=== PATIENT | male | born 1975 | race Caucasian/White ===

== ENCOUNTER 2016-12-31 03:19 | Emergency (ER) | payer OTHER ==
[2016-12-31 03:28] VITALS: RESP 16
[2016-12-31] MEDS ORDERED: NS 1,000 ML IV ONE (03:35)
[2016-12-31] MEDS ORDERED: DEXAMETHASONE 4 MG/ML VIAL IVP ONE (03:45)
[2016-12-31] MEDS ORDERED: METOCLOPRAMIDE 10 MG/2 ML VIAL IVP ONE (03:45)
[2016-12-31] MEDS ORDERED: KETOROLAC 15 MG/1 ML SDV IVP ONE (03:45)
--- NOTE | 2016-12-31 03:45 | EDPHY ---
H & P Stated Complaint: [place] HPI/ROS: HPI CHIEF COMPLAINT: "I am having a migraine headache" HISTORY OF PRESENT ILLNESS: This patient very pleasant 41-year-old male significant past medical history for migraine headaches last migraine headache was 1 month ago, takes sumatriptan, also has anxiety, he presents emergency room with a frontal throbbing pounding headache consistent with his previous migraines. He states he woke him up around 130 in the morning. He did try 2 separate doses of sumatriptan and ibuprofen however this did not help relieve his headache. He has had 3 episodes of nausea vomiting associated this headache. He has no neck pain, chest pain or shortness of breath he has no numbness or tingling or focal weakness. States similar to his previous migraine headaches. 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 Exam Constitutional appears well nontoxic, triage nursing summary reviewed, vital signs reviewed, awake/alert. Eyes normal conjunctivae and sclera, EOMI, PERRLA. HENT normal inspection, atraumatic, moist mucus membranes, no epistaxis, neck supple/ no meningismus, no raccoon eyes. Respiratory clear to auscultation bilaterally, normal breath sounds, no respiratory distress, no wheezing. Cardiovascular rate normal, regular rhythm, no murmur, no edema, distal pulses normal. Gastrointestinal soft, non-tender, no rebound, no guarding, normal bowel sounds, no distension, no pulsatile mass. Genitourinary no CVA tenderness. Musculoskeletal no midline vertebral tenderness, full range of motion, no calf swelling, no tenderness of extremities, no meningismus, good pulses, neurovascularly intact. Skin pink, warm, & dry, no rash, skin atraumatic. Neurologic normal neurological exam awake, alert and oriented x 3, AAOx3, moves all 4 extremities equally, motor intact, sensory intact, CN II-XII intact , normal cerebellar, normal vision, normal speech. Psychiatric normal mood/affect. Heme/Lymph/Immune no lymphadenopathy. Differential Diagnosis: Includes but is not limited to in no particular order, migraine headache, tension headache, cluster headache, doubt intracranial bleed. Medical Decision Making: Patient be placed on full director of cardiac cath lab he will have an IV established will obtain blood work, a be gently hydrated with IV fluids, he will be given abortive medications for his migraine headache. This includes Decadron, Toradol, Benadryl Reglan. Re-evaluation: CT scan of the head without IV contrast The results of the study are negative for acute abnormality specifically no bleed or tumor. The study was read by Dr. York I viewed the images myself on the PACS system. 515AM: Re-examination at this time this patient is feeling much better his headache is completely resolved with migraine cocktail. His neurological exam is unremarkable and nonfocal. His CT scan and blood work have been reviewed and are unremarkable. Vital signs stable. He is agreeable for discharge she is asking for nausea medicine to go home on as well as a refill his sumatriptan. This is reasonable. He does understand return emergency room if develops worsening symptoms includes severe headache, nausea, vomiting. Source: Patient - Personal History Current Tetanus/Diphtheria Vaccine: Yes Current Tetanus Diphtheria and Acellular Pertussis (TDAP): Yes - Medical/Surgical History Hx Asthma: No Hx Chronic Respiratory Disease: No Hx Diabetes: No Hx Cardiac Disease: No Hx Renal Disease: No Hx Cirrhosis: No Hx Alcoholism: No Hx HIV/AIDS: No Hx Splenectomy or Spleen Trauma: No Other PMH: anxiety, migraines, hemmoroid, appy - Social History Smoking Status: Never smoked Constitutional: Initial Vital Signs Heart Rate 72 12/31/16 03:25 Respiratory Rate 16 12/31/16 03:25 Blood Pressure 137/64 H 12/31/16 03:25 O2 Sat (%) 98 12/31/16 03:25 O2 Delivery Mode Room Air Allergies/Adverse Reactions: No Known Allergies Allergy (Unverified 12/31/16 03:24) Home Medications: Medication Instructions Recorded Sumatriptan Succinate [Imitrex] 0.5 tab PO AD PRN #9 tablet 04/23/15 Ondansetron HCl [Zofran] 4 mg PO Q4-6PRN PRN #10 tablet 12/31/16 SUMAtriptan [Imitrex 50 MG (*)] 50 mg PO Q2H #5 tab 12/31/16 Zoloft 25mg (*) 12/31/16 Medical Decision Making - Data Points Laboratory Results: Laboratory Results 12/31/16 03:35 12/31/16 03:35 12/31/16 12/31/16 12/31/16 03:35 03:35 03:35 WBC 6.95 10^3/uL 10^3/uL (3.80-9.50) RBC 5.08 10^6/uL 10^6/uL (4.40-6.38) Hgb 15.2 g/dL g/dL (13.7-17.5) Hct 43.2 % % (40.0-51.0) MCV 85.0 fL fL (81.5-99.8) MCH 29.9 pg pg (27.9-34.1) MCHC 35.2 g/dL g/dL (32.4-36.7) RDW 12.4 % % (11.5-15.2) Plt Count 157 10^3/uL 10^3/uL (150-400) MPV 12.6 fL H fL (8.7-11.7) Neut % (Auto) 53.3 % % (39.3-74.2) Lymph % (Auto) 37.3 % % (15.0-45.0) [place] % (Auto) 6.3 % % (4.5-13.0) Eos % (Auto) 2.6 % % (0.6-7.6) Baso % (Auto) 0.4 % % (0.3-1.7) Nucleat RBC Rel Count 0.0 % % (0.0-0.2) Absolute Neuts (auto) 3.70 10^3/uL 10^3/uL (1.70-6.50) Absolute Lymphs (auto) 2.59 10^3/uL 10^3/uL (1.00-3.00) Absolute Monos (auto) 0.44 10^3/uL 10^3/uL (0.30-0.80) Absolute Eos (auto) 0.18 10^3/uL 10^3/uL (0.03-0.40) Absolute Basos (auto) 0.03 10^3/uL 10^3/uL (0.02-0.10) Absolute Nucleated RBC 0.00 10^3/uL 10^3/uL (0-0.01) Immature Gran % 0.1 % % (0.0-1.1) Immature Gran # 0.01 10^3/uL 10^3/uL (0.00-0.10) PT 13.2 SEC SEC (12.0-15.0) INR 1.01 (0.83-1.16) APTT 23.5 SEC SEC (23.0-38.0) Sodium 143 mEq/L mEq/L (134-144) Potassium 4.0 mEq/L mEq/L (3.5-5.2) Chloride 107 mEq/L mEq/L (97-110) Carbon Dioxide 22 mEq/l mEq/l (22-31) Anion Gap 14 mEq/L mEq/L (8-16) BUN 23 mg/dL mg/dL (7-23) Creatinine 0.9 mg/dL mg/dL (0.7-1.3) Estimated GFR > 60 Glucose 113 mg/dL H mg/dL (70-100) Calcium 9.9 mg/dL mg/dL (8.5-10.4) Total Bilirubin Cancelled Conjugated Bilirubin Cancelled Unconjugated Bilirubin Cancelled AST Cancelled ALT Cancelled Alkaline Phosphatase Cancelled Total Protein Cancelled Albumin Cancelled Lipase Cancelled Medications Given: Discontinued Medications Dexamethasone (Decadron Injection) 4 mg IVP EDNOW ONE Stop: 12/31/16 03:46 Last Admin: 12/31/16 03:56 Dose: Not Given Dexamethasone (Decadron Injection) 10 mg IVP EDNOW ONE Stop: 12/31/16 03:52 Last Admin: 12/31/16 03:56 Dose: 10 mg Diphenhydramine HCl (Benadryl Injection) 50 mg IVP EDNOW ONE Stop: 12/31/16 03:46 Last Admin: 12/31/16 03:55 Dose: 50 mg Sodium Chloride (Ns) 1,000 mls @ 0 mls/hr IV ONCE ONE PRN Reason: Wide Open Stop: 12/31/16 03:36 Last Admin: 12/31/16 03:46 Dose: 1,000 mls Ketorolac Tromethamine (Toradol) 15 mg IVP EDNOW ONE Stop: 12/31/16 03:46 Last Admin: 12/31/16 03:56 Dose: 15 mg Metoclopramide HCl (Reglan Injection) 10 mg IVP EDNOW ONE Stop: 12/31/16 03:46 Last Admin: 12/31/16 03:56 Dose: 10 mg Departure - Departure Disposition: Home, Routine, Self-Care Clinical Impression: Headache Qualifiers: Headache type: unspecified Headache chronicity pattern: acute headache Intractability: not intractable Qualified Code(s): R51 - Headache Condition: Good Instructions: Acute Headache (ED) Additional Instructions: 1.Return to the Emergency Room immediately if you developsworsening symptoms questions or concerns. This includes severe headache, vomiting or high fever. Referrals: Barbara Mullins, PRESS LOADER [Primary Care Provider] - As per Instructions Prescriptions: Ondansetron HCl [Zofran] 4 mg PO Q4-6PRN PRN #10 tablet PRN Reason: Nausea/Vomiting, Use 1st SUMAtriptan [Imitrex 50 MG (*)] 50 mg PO Q2H #5 tab
[2016-12-31 03:49] LABS: % IMMATURE GRANULYOCYTES 0.1 % (0.0-1.1); ABSOLUTE IMMATURE GRANULOCYTES 0.01 10^3/uL (0.00-0.10); ADD DIFF? NO; ADD MORPH? NO; ADD SCAN? NO; ATYPICAL LYMPHOCYTE FLAG 0 (0-99); FRAGMENT RBC FLAG 0 (0-99); HEMATOCRIT 43.2 % (40.0-51.0); HEMOGLOBIN 15.2 g/dL (13.7-17.5); LEFT SHIFT FLG 0 (0-99); LIPEMIA HEMOLYSIS FLAG 90 (0-99); MEAN CELL HEMOGLOBIN 29.9 pg (27.9-34.1); MEAN CELL HEMOGLOBIN CONCENTR. 35.2 g/dL (32.4-36.7); MEAN PLATELET VOLUME 12.6 fL (8.7-11.7); PLATELET CLUMPS FLAG 0 (0-99); PLATELET COUNT 157 10^3/uL (150-400); RED BLOOD CELL COUNT 5.08 10^6/uL (4.40-6.38); RED CELL DISTRIBUTION WIDTH 12.4 % (11.5-15.2)
[2016-12-31] MEDS ORDERED: DEXAMETHASONE 10 MG/ML VIAL IVP ONE (03:51)
[2016-12-31 03:59] LABS: INR 1.01 (0.83-1.16); PROTIME(PATIENT) 13.2 SEC (12.0-15.0)
[2016-12-31 04:00] LABS: ANION GAP 14 mEq/L (8-16); APTT 23.5 SEC (23.0-38.0); CALCIUM 9.9 mg/dL (8.5-10.4); CARBON DIOXIDE 22 mEq/l (22-31); CHLORIDE 107 mEq/L (97-110); CREATININE 0.9 mg/dL (0.7-1.3); GLOMERULAR FILTRATION RATE > 60; GLUCOSE 113 mg/dL (70-100); SODIUM 143 mEq/L (134-144)
[2016-12-31 05:31] VITALS: BP 117/68; PULSE 76; TEMP 97.9; O2SAT 96
== END 2016-12-31 05:31 | disposition home or self-care (01) ==
DX: R51 Headache (principal); I10 Essential (primary) hypertension
CPT/HCPCS: 96374; J1100; J1200; J1885; J2765

== ENCOUNTER 2018-06-24 01:32 | Emergency (ER) | payer OTHER ==
[2018-06-24] MEDS ORDERED: HALOPERIDOL LACT 5 MG/ML INJ IVP ONE (01:57)
[2018-06-24] MEDS ORDERED: NS 1,000 ML IV ONE (01:57)
[2018-06-24] MEDS ORDERED: DEXAMETHASONE 10 MG/ML VIAL IVP ONE (01:57)
[2018-06-24] MEDS ORDERED: KETOROLAC 15 MG/1 ML SDV IVP ONE (01:57)
--- NOTE | 2018-06-24 02:00 | EDPHY ---
H & P Stated Complaint: MIGRAINE HEADACHE 1 DAY, N,V, PHOTOPHOBIA Time Seen by Provider: 06/24/18 01:52 HPI/ROS: Chief Complaint: Migraine headache HPI: 43-year-old male with a history migraine headaches began having a his usual migraine about 10:00 a.m. Tonight. It was gradual in onset. Pain is about a 10/10. He has had pain this bad before. He did take sumatriptan without affect. He states that his typical triggers are chili peppers chocolate and dehydration. He does feel dehydrated is not drink as much fluid in the last 2 days as he or normally does. No new numbness or weakness. He describes pain in his whole front of his head primarily in the left hand side. Some nausea vomiting. Some photophobia. No neck pain or stiffness. Is described as pounding. ROS: 10 systems were reviewed and were negative except those elements noted in the HPI. PMH: Migraine headache Social History: No smoking, no alcohol, no recreational drug use Family History: non-contributory Physical Exam: Gen: Awake, Alert, No Distress HEENT: Nose: no rhinorrhea Eyes: PERRLA, EOMI Mouth: Moist mucosa Neck: Supple, no JVD Chest: nontender, lungs clear to auscultation Heart: S1, S2 normal, no murmur Abd: Soft, non-tender, no guarding Back: no CVA tenderness, no midline tenderness Ext: no edema, non-tender Skin: no rash Neuro: CN II-XII intact, Sensation grossly intact, Strength 5/5 in bilateral upper and lower extremities - Personal History Current Tetanus/Diphtheria Vaccine: Unsure Current Tetanus Diphtheria and Acellular Pertussis (TDAP): Unsure - Medical/Surgical History Hx Asthma: No Hx Chronic Respiratory Disease: No Hx Diabetes: No Hx Cardiac Disease: No Hx Renal Disease: No Hx Cirrhosis: No Hx Alcoholism: No Hx HIV/AIDS: No Hx Splenectomy or Spleen Trauma: No Other PMH: anxiety, migraines, hemmoroid, appy - Social History Smoking Status: Never smoked Constitutional: Initial Vital Signs Temperature (C) 36.4 C 06/24/18 01:35 Heart Rate 72 06/24/18 01:35 Respiratory Rate 18 06/24/18 01:35 Blood Pressure 133/85 H 06/24/18 01:35 O2 Sat (%) 98 06/24/18 01:35 O2 Delivery Mode Room Air Allergies/Adverse Reactions: No Known Allergies Allergy (Unverified 06/24/18 01:38) Home Medications: Medication Instructions Recorded Sumatriptan Succinate [Imitrex] 0.5 tab PO AD PRN #9 tablet 04/23/15 Ondansetron HCl [Zofran] 4 mg PO Q4-6PRN PRN #10 tablet 12/31/16 SUMAtriptan [Imitrex 50 MG (*)] 50 mg PO Q2H #5 tab 12/31/16 buPROPion [Wellbutrin 100mg (*)] 100 mg PO TID 06/24/18 Medical Decision Making ED Course/Re-evaluation: Patient is improved after migraine cocktail. Headache is nearly gone. He is ambulating unassisted. Will discharge with follow-up with primary care physician, return for any concerns. I do not see any evidence of acute infectious or hemorrhagic process. - Data Points Medications Given: Discontinued Medications Dexamethasone (Decadron Injection) 10 mg IVP EDNOW ONE Stop: 06/24/18 01:58 Last Admin: 06/24/18 02:06 Dose: 10 mg Diphenhydramine HCl (Benadryl Injection) 50 mg IVP EDNOW ONE Stop: 06/24/18 01:58 Last Admin: 06/24/18 02:04 Dose: 50 mg Haloperidol Lactate (Haldol Injection) 2.5 mg IVP EDNOW ONE Stop: 06/24/18 01:58 Last Admin: 06/24/18 02:09 Dose: 2.5 mg Sodium Chloride (Ns) 1,000 mls @ 0 mls/hr IV ONCE ONE; Wide Open PRN Reason: Protocol Stop: 06/24/18 01:58 Last Admin: 06/24/18 02:04 Dose: 1,000 mls Ketorolac Tromethamine (Toradol) 15 mg IVP EDNOW ONE Stop: 06/24/18 01:58 Last Admin: 06/24/18 02:07 Dose: 15 mg Departure - Departure Disposition: Home, Routine, Self-Care Clinical Impression: Migraine headache Condition: Good Instructions: Migraine Headache (ED), Dehydration (ED) Additional Instructions: Follow up with primary care physician in 2-3 days for further evaluation. Return to the emergency department for worsening headache, uncontrolled nausea vomiting, fevers, or any other concerns. Referrals: Barbara Mullins, REAL ESTATE MANAGER [Primary Care Provider] - As per Instructions
[2018-06-24 03:18] VITALS: BP 113/77
== END 2018-06-24 03:28 | disposition home or self-care (01) ==
DX: G43.909 Migraine, unspecified, not intractable, without status migrainosus (principal); E86.9 Volume depletion, unspecified
CPT/HCPCS: 96374; J1100; J1200; J1630; J1885

== ENCOUNTER 2018-07-29 01:33 | Emergency (ER) | payer OTHER ==
[2018-07-29] MEDS ORDERED: DEXAMETHASONE 4 MG/ML VIAL IVP ONE (02:02)
[2018-07-29] MEDS ORDERED: NS 1,000 ML IV ONE (02:02)
[2018-07-29] MEDS ORDERED: METOCLOPRAMIDE 10 MG/2 ML VIAL IVP ONE (02:02)
[2018-07-29] MEDS ORDERED: HALOPERIDOL LACT 5 MG/ML INJ IVP ONE (02:02)
--- NOTE | 2018-07-29 02:09 | EDPHY ---
H & P Stated Complaint: migraine Time Seen by Provider: 07/29/18 01:51 HPI/ROS: HPI The patient presents with headache which feels like his usual migraine which awoke him from sleep about 1 hr prior to arrival here. He says the headache is frontal, bilateral, throbbing, associated with photophobia and nausea without any vomiting. He took ibuprofen 600 mg just prior to arrival without any improvement in his symptoms. He realized he was out of his inhaled sumatriptan. He last had a headache like this 1 month ago and was seen in the emergency department and improved. He is not sure what triggered this migraine , it is sometimes related to food.. REVIEW OF SYSTEMS 10 systems were reviewed and negative with the exception of the elements mentioned in the history of present illness. PMHx: Migraine headaches, history of anxiety Soc Hx: Here with his PHYSICAL General Appearance: Alert, no distress Eyes: Pupils equal and round no pallor or injection ENT, Mouth: Mucous membranes moist Respiratory: There are no retractions, lungs are clear to auscultation Cardiovascular: Regular rate and rhythm Gastrointestinal: Abdomen is soft and non-tender, no masses, bowel sounds normal Neurological: A&O x3, cranial nerves 2-12 intact, 5/5 strength in upper and lower extremities which is symmetric Skin: Warm and dry, no rashes Musculoskeletal: Neck is supple non tender Extremities: symmetrical, full range of motion Psychiatric: Patient is oriented X 3, there is no agitation Source: Patient Exam Limitations: No limitations - Personal History Current Tetanus/Diphtheria Vaccine: Unsure Current Tetanus Diphtheria and Acellular Pertussis (TDAP): Unsure - Medical/Surgical History Hx Asthma: No Hx Chronic Respiratory Disease: No Hx Diabetes: No Hx Cardiac Disease: No Hx Renal Disease: No Hx Cirrhosis: No Hx Alcoholism: No Hx HIV/AIDS: No Hx Splenectomy or Spleen Trauma: No Other PMH: anxiety, migraines, hemmoroid, appy - Social History Smoking Status: Never smoked Constitutional: Initial Vital Signs Temperature (C) 36.5 C 07/29/18 01:35 Heart Rate 57 L 07/29/18 01:35 Respiratory Rate 16 07/29/18 01:35 Blood Pressure 124/95 H 07/29/18 01:35 O2 Sat (%) 96 07/29/18 01:35 O2 Delivery Mode Room Air Allergies/Adverse Reactions: No Known Allergies Allergy (Unverified 06/24/18 01:38) Home Medications: Medication Instructions Recorded Sumatriptan Succinate [Imitrex] 0.5 tab PO AD PRN #9 tablet 04/23/15 Ondansetron HCl [Zofran] 4 mg PO Q4-6PRN PRN #10 tablet 12/31/16 SUMAtriptan [Imitrex 50 MG (*)] 50 mg PO Q2H #5 tab 12/31/16 buPROPion [Wellbutrin 100mg (*)] 100 mg PO TID 06/24/18 SUMAtriptan [Imitrex Nasal [place]] 20 mg NS ONCE PRN #20 spray 07/29/18 Medical Decision Making Differential Diagnosis: 43-year-old male who has a history of migraine headaches who is brought in for a headache which began about 1 hr prior to arrival in the emergency department. This feels identical to previous migraines. Out of his sumatriptan at home. Here, he received IV fluids and migraine medication with improvement in his symptoms. He requested discharge home. He had a normal neurologic exam. Differential diagnosis includes migraine headache, less likely tension type headache or sinusitis. - Data Points Medications Given: Discontinued Medications Dexamethasone (Decadron Injection) 8 mg IVP EDNOW ONE Stop: 07/29/18 02:03 Last Admin: 07/29/18 02:32 Dose: 8 mg Diphenhydramine HCl (Benadryl Injection) 25 mg IVP EDNOW ONE Stop: 07/29/18 02:04 Last Admin: 07/29/18 02:26 Dose: 25 mg Haloperidol Lactate (Haldol Injection) 2.5 mg IVP EDNOW ONE Stop: 07/29/18 02:03 Last Admin: 07/29/18 02:29 Dose: 2.5 mg Sodium Chloride (Ns) 1,000 mls @ 3,000 mls/hr IV EDNOW ONE Stop: 07/29/18 02:21 Last Admin: 07/29/18 02:25 Dose: 1,000 mls Metoclopramide HCl (Reglan Injection) 10 mg IVP EDNOW ONE Stop: 07/29/18 02:03 Last Admin: 07/29/18 02:28 Dose: 10 mg Departure - Departure Disposition: Home, Routine, Self-Care Clinical Impression: Migraine headache Qualifiers: Migraine type: unspecified Status migrainosus presence: without status migrainosus Intractability: not intractable Qualified Code(s): G43.909 - Migraine, unspecified, not intractable, without status migrainosus Condition: Good Instructions: Migraine Headache (ED) Additional Instructions: Please return to the emergency department if your worse in any way. Referrals: Barbara Mullins, SECOND SHIFT SUPERVISOR [Primary Care Provider] - As per Instructions Prescriptions: SUMAtriptan [Imitrex Nasal [place]] 20 mg NS ONCE PRN #20 spray PRN Reason: Headache
[2018-07-29 03:32] VITALS: BP 124/89
== END 2018-07-29 03:31 | disposition home or self-care (01) ==
DX: G43.909 Migraine, unspecified, not intractable, without status migrainosus (principal)
CPT/HCPCS: 96374; J1100; J1200; J1630; J2765

== ENCOUNTER 2019-01-18 02:39 | Emergency (ER) | payer OTHER ==
[2019-01-18] MEDS ORDERED: HALOPERIDOL LACT 5 MG/ML INJ IVP ONE (03:10)
[2019-01-18] MEDS ORDERED: DEXAMETHASONE 10 MG/ML VIAL IVP ONE (03:10)
[2019-01-18] MEDS ORDERED: NS 1,000 ML IV ONE (03:10)
[2019-01-18] MEDS ORDERED: KETOROLAC 15 MG/1 ML SDV IVP ONE (03:10)
--- NOTE | 2019-01-18 03:11 | EDPHY ---
H & P Stated Complaint: MIGRAINE HEADACHE FORPAST 2 HRS, NAUSEA VOMITING AND PHOTOPHOBIA Time Seen by Provider: 01/18/19 03:01 HPI/ROS: Chief Complaint: Migraine headache HPI: 43-year-old male with a history migraine headaches presenting with his usual migraine which began about 2 hr ago. Patient did use sumatriptan without any relief. He also took 1 tablet of Benadryl. Pain is about an 8/10. Has had some nausea vomiting. Also has photophobia. No recent illness. No fevers or chills. No neck pain or stiffness. Symptoms are exactly like with his prior migraine headaches. No recent travel. ROS: 10 systems were reviewed and were negative except those elements noted in the HPI. PMH: Migraine headaches, hypertension, hyperlipidemia Social History: No smoking, no alcohol, no recreational drug use Family History: non-contributory Physical Exam: Gen: Awake, Alert, No Distress HEENT: Nose: no rhinorrhea Eyes: PERRLA, EOMI Mouth: Moist mucosa Neck: Supple, no JVD Chest: nontender, lungs clear to auscultation Heart: S1, S2 normal, no murmur Abd: Soft, non-tender, no guarding Back: no CVA tenderness, no midline tenderness Ext: no edema, non-tender Skin: no rash Neuro: CN II-XII intact, Sensation grossly intact, Strength 5/5 in bilateral upper and lower extremities - Personal History Current Tetanus/Diphtheria Vaccine: Yes Current Tetanus Diphtheria and Acellular Pertussis (TDAP): Yes - Medical/Surgical History Hx Asthma: No Hx Chronic Respiratory Disease: No Hx Diabetes: No Hx Cardiac Disease: No Hx Renal Disease: No Hx Cirrhosis: No Hx Alcoholism: No Hx HIV/AIDS: No Hx Splenectomy or Spleen Trauma: No Other PMH: anxiety, migraines, hemmoroid, appy - Social History Smoking Status: Never smoked Constitutional: Initial Vital Signs Temperature (C) 36.5 C 01/18/19 02:44 Heart Rate 71 01/18/19 02:44 Respiratory Rate 18 01/18/19 02:44 Blood Pressure 153/89 H 01/18/19 02:44 O2 Sat (%) 98 01/18/19 02:44 O2 Delivery Mode Room Air Allergies/Adverse Reactions: No Known Allergies Allergy (Unverified 01/18/19 02:46) Home Medications: Medication Instructions Recorded Sumatriptan Succinate [Imitrex] 0.5 tab PO AD PRN #9 tablet 04/23/15 Ondansetron HCl [Zofran] 4 mg PO Q4-6PRN PRN #10 tablet 12/31/16 SUMAtriptan [Imitrex 50 MG (*)] 50 mg PO Q2H #5 tab 12/31/16 buPROPion [Wellbutrin 100mg (*)] 100 mg PO TID 06/24/18 SUMAtriptan [Imitrex Nasal [place]] 20 mg NS ONCE PRN #20 spray 07/29/18 Medical Decision Making ED Course/Re-evaluation: Patient's headache is improved after migraine cocktail. He is asking to go home. Will discharge with follow-up with his neurologist. - Data Points Medications Given: Discontinued Medications Dexamethasone (Decadron Injection) 10 mg IVP EDNOW ONE Stop: 01/18/19 03:11 Last Admin: 01/18/19 03:23 Dose: 10 mg Diphenhydramine HCl (Benadryl Injection) 25 mg IVP EDNOW ONE Stop: 01/18/19 03:11 Last Admin: 01/18/19 03:16 Dose: 25 mg Haloperidol Lactate (Haldol Injection) 2.5 mg IVP EDNOW ONE Stop: 01/18/19 03:11 Last Admin: 01/18/19 03:20 Dose: 2.5 mg Sodium Chloride (Ns) 1,000 mls @ 0 mls/hr IV ONCE ONE; Wide Open PRN Reason: Protocol Stop: 01/18/19 03:11 Last Admin: 01/18/19 03:15 Dose: 1,000 mls Ketorolac Tromethamine (Toradol) 15 mg IVP EDNOW ONE Stop: 01/18/19 03:11 Last Admin: 01/18/19 03:18 Dose: 15 mg Departure - Departure Disposition: Home, Routine, Self-Care Clinical Impression: Migraine headache Condition: Good Instructions: Migraine Headache (ED) Additional Instructions: Follow up with primary care provider in 2-3 days for any concerns. Return to the emergency department for worsening headache, uncontrolled nausea vomiting, fevers, or any other concerns. Referrals: Barbara Mullins HANGER [Primary Care Provider] - As per Instructions
[2019-01-18 04:36] VITALS: BP 142/91
== END 2019-01-18 04:36 | disposition home or self-care (01) ==
DX: G43.909 Migraine, unspecified, not intractable, without status migrainosus (principal); I10 Essential (primary) hypertension; E78.5 Hyperlipidemia, unspecified
CPT/HCPCS: 96374; J1100; J1200; J1630; J1885